=== PATIENT | female | born 1970 | race Caucasian/White ===

== ENCOUNTER 2020-09-11 12:27 | Emergency (ER) | payer OTHER ==
[~2020-09-11] VITALS: Ht 162.6 cm; Wt 57.7 kg
--- NOTE | 2020-09-11 13:15 | NUR ---
PIV PLACED, LABS DRAWN AND SENT TO LAB WITH LAB SLIP.
[2020-09-11] MEDS ORDERED: RIME75TA SL (13:22)
[2020-09-11 13:24] LABS: BASOPHILS % (AUTO) 1 % (0-1); EOSINOPHILS % (AUTO) 0 % (1-7); LYMPHOCYTES % (AUTO) 30 % (22-44); MEAN CORPUSCULAR HEMOGLOBIN 31.5 pg (27.0-34.8); MEAN CORPUSCULAR HGB CONC 34.1 g/dL (32.4-35.8); MONOCYTES % (AUTO) 8 % (2-9); NEUTROPHILS % (AUTO) 60 % (42-75); PLATELET COUNT 214 x10^3/uL (130-400); RED CELL DISTRIBUTION WIDTH 13.2 % (9.6-15.2)
[2020-09-11] MEDS ORDERED: LORazepam 2 MG/ML, 1ML ONE (13:27)
[2020-09-11] MEDS ORDERED: LORazepam 1MG TABLET PO ONE (13:30)
[2020-09-11] MEDS ORDERED: LORazepam 2 MG/ML, 1ML IVPush ONE (13:30)
[2020-09-11 13:32] LABS: ALANINE AMINOTRANSFERASE 19 U/L (12-78); ALBUMIN 4.4 g/dL (3.4-5.0); ANION GAP 9 mmol/L (5-15); CALCIUM 9.6 mg/dL (8.5-10.1); CHLORIDE 108 mmol/L (98-107); CREATININE 0.89 mg/dL (0.55-1.02)
--- NOTE | 2020-09-11 13:32 | NUR ---
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
[2020-09-11 13:36] LABS: ALKALINE PHOSPHATASE 94 U/L (45-117); BILIRUBIN,TOTAL 0.6 mg/dL (0.2-1.0); TOTAL PROTEIN 8.7 g/dL (6.4-8.2); TROPONIN I < 0.015 ng/mL (0.000-0.045)
--- NOTE | 2020-09-11 13:51 | NUR ---
ERMD AT BEDSIDE FOR ASSESSMENT.
[2020-09-11] MEDS ORDERED: FAMOTIDINE 20 MG/2 ML IVPush ONE (14:00)
[2020-09-11] MEDS ORDERED: MAALOX/HYOSCYAMINE/LIDOCAINE 45 ML BTL PO ONE (14:00)
[2020-09-11] MEDS ORDERED: FAMOTIDINE 20 MG TABLET PO ONE (14:00)
--- NOTE | 2020-09-11 14:15 | NUR ---
US AT BEDSIDE.
[2020-09-11] MEDS ORDERED: FAMOTIDINE 20 MG/2 ML ONE (14:29)
[2020-09-11] MEDS ORDERED: MAALOX/HYOSCYAMINE/LIDOCAINE 45 ML BTL ONE (14:30)
--- NOTE | 2020-09-11 14:38 | NUR ---
MEDS ADMIN PER APR. PT RESTING COMFORTABLY. RESP EVEN AND UNLABORED.
[2020-09-11 14:39] VITALS: BP 122/82
[2020-09-11 15:49] LABS: TROPONIN I < 0.015 ng/mL (0.000-0.045)
--- NOTE | 2020-09-11 16:00 | NUR ---
ALL RESULTS ARE BACK AT THIS TIME. CHART UP FOR RECHECK.
== END 2020-09-11 16:53 | disposition home or self-care (01) ==
LOC: ED 14:53
DX: R07.89 Other chest pain (principal); R10.13 Epigastric pain; R11.2 Nausea with vomiting, unspecified
CPT/HCPCS: 36415; 71045; 76700; 80053; 83690; 83880; 84484; 85025; 93005; 96374; 96375; 99285; J2060